=== PATIENT | female | born 1940 | race Caucasian/White ===

== ENCOUNTER → 2016-12-19 | Outpatient (CLI) | payer MEDICARE ==
[~2016-12-19] MED LIST: AMLO10TA82 PO; ATOR40TA2 PO; CARV12.52 PO; CHOL10002 PO; FERR325T36 PO; FRSM40T PO; INSU100V32 SC; LOSA50TA2 PO; OMEG1CAP PO; PAMI30VI8 SC; VIT1CAPS31 PO
[2016-12-19 09:56] LABS: ALBUMIN 4.2 g/dL (3.4-5.0); ANION GAP 20.5 MEQ/L (3-15); PHOSPHORUS 4.9 mg/dL (2.4-4.9)
== END ==
LOC: LAB 09:12
PROVIDERS: ATTEND Internal Medicine Nephrology
DX: N18.3 Chronic kidney disease, stage 3 (moderate) (principal)
CPT/HCPCS: 36415; 80069; 82306; 83970

== ENCOUNTER → 2016-12-29 | Outpatient (CLI) | payer MEDICARE ==
[2016-12-29 08:05] LABS: BASOPHILS % (AUTO) 0 % (0-2); EOSINOPHILS # (AUTO) 0.2 10^3uL; EOSINOPHILS % (AUTO) 3 % (0-4); LYMPHOCYTES # (AUTO) 1.9 X10^3; MEAN CORPUSCULAR HEMOGLOBIN 30.5 PG (26.0-34.0); MEAN CORPUSCULAR HGB CONC 32.2 g/dL (31.0-37.0); MEAN CORPUSCULAR VOLUME 95 FL (80-100); MEAN PLATELET VOLUME 10.1 FL (6.0-9.5); MONOCYTES # (AUTO) 0.8 X10^3; MONOCYTES % (AUTO) 11 % (3-11); NEUTROPHILS # (AUTO) 4.7 X10^3; NEUTROPHILS % (AUTO) 62 % (51-67); PLATELET COUNT 175 10^3uL (150-450); WHITE BLOOD COUNT 7.66 10^3uL (4.0-11.0)
[2016-12-29 08:33] LABS: ALBUMIN 4.1 g/dL (3.4-5.0); ANION GAP 19.4 MEQ/L (3-15); CALCULATED IONIZED CALCIUM 4.1 mg/dL (3.8-4.6); TOTAL PROTEIN 7.5 g/dL (6.4-8.5)
[2016-12-29 09:10] LABS: ERYTHROCYTE SEDIMENTATION RT* 35 mm/hr (0-23)
== END ==
LOC: LAB 07:47
PROVIDERS: ATTEND Internal Medicine
DX: Z00.00 Encounter for general adult medical examination without abnormal findings (principal); E11.9 Type 2 diabetes mellitus without complications; I10 Essential (primary) hypertension; D50.8 Other iron deficiency anemias; I48.91 Unspecified atrial fibrillation; M35.3 Polymyalgia rheumatica
CPT/HCPCS: 36415; 80053; 80061; 83036; 84443; 85025; 85652